=== PATIENT | female | born 1960 | race Caucasian/White ===

== ENCOUNTER 2023-12-07 09:45 | Emergency (ER) | payer SELFPAY ==
[2023-12-07 09:58] VITALS: BP 131/64; PULSE 77; RESP 16; TEMP 36; O2SAT 99; BMI 24.3
[2023-12-07] MEDS: DOXYCYCLINE HYCLATE 100 MG TABLET 200 MG PO (12:02)
--- NOTE | 2023-12-07 14:16 | ED_ITS ---
HPI - Skin/Abscess/Foreign Bdy <Stella Pacheco PA-C - Last Filed: 12/07/23 14:23> General Chief complaint: Skin/Abscess/Foreign Body Stated complaint: tick bite, infected? Time Seen by Provider: 12/07/23 11:31 Source: patient Mode of arrival: Ambulatory History of Present Illness HPI narrative: 63-year-old female presents to the ED status post a tick bite sustained recently. Patient states that she experienced some soreness and a bruised feeling on the left trunk, on closer inspection noted that she saw something stuck in her skin. Patient pulled it out thinking it might have been a little piece of wood, but it turned out to be a live take. Patient was able to bring the tick in for inspection. Patient is complaining of soreness and pain at the site of the tick bite. No other symptoms including fevers, chills, muscle aches, chest pain, shortness of breath. Patient is unclear when this tick bite actually happened. Related Data Previous Rx's Medication Instructions Recorded doxycycline hyclate 100 mg capsule 100 mg PO BID 14 days #28 caps 12/07/23 Allergies Allergy/AdvReac Type Severity Reaction Status Date / Time No Known Drug Allergies Allergy Verified 12/07/23 10:03 Review of Systems <Stella Pacheco PA-C - Last Filed: 12/07/23 14:23> Constitutional Constitutional: Denies chills, Denies fatigue, Denies fever(s), Denies frequent falls, Denies lethargy and Denies weakness Eyes Eyes: Denies change in vision, Denies eye discharge, Denies irritation and Denies loss of vision ENT Ears, Nose, Mouth, and Throat: Denies change in voice, Denies dizziness, Denies neck pain, Denies sore throat and Denies throat swelling Cardiovascular Cardiovascular: Denies chest pain, Denies irregular heart rhythm, Denies lightheadedness, Denies palpitations, Denies dyspnea, Denies dyspnea on exertion and Denies orthopnea Respiratory Respiratory: Denies cough, Denies dyspnea, Denies dyspnea on exertion and Denies wheezing Gastrointestinal Gastrointestinal: Denies abdominal pain, Denies change in bowel habits, Denies diarrhea, Denies nausea and Denies vomiting Musculoskeletal Musculoskeletal: Denies neck pain and Denies numbness Integumentary/Breasts Skin/Breast: Denies pruritus, Reports erythema, Denies rash, Reports skin pain and Denies wounds Comments: Insect bite Neurologic Neurologic: Denies behavioral changes, Denies confusion, Denies dizziness, Denies frequent falls, Denies loss of vision, Denies numbness and Denies weakness Psychiatric Psychiatric: Denies anxiety, Denies behavioral changes, Denies confusion, Denies depression, Denies homicidal ideation and Denies suicidal ideation Endocrine Endocrine: Denies fatigue, Denies flushing and Denies palpitations Hematologic/Lymphatic Hematologic/Lymphatic: Denies easy bruising Allergic/Immunologic Allergic/Immunologic: Denies urticaria, Denies throat swelling and Denies wheezing Patient History <Stella Pacheco PA-C - Last Filed: 12/07/23 14:23> Social History Smoking Status: Never smoker Smoking Status: Never smoker alcohol intake frequency: a few times a month Substance Use Type: marijuana Exam <Stella Pacheco PA-C - Last Filed: 12/07/23 14:23> Narrative Exam Narrative: Const General:?cooperative, healthy appearing and comfortable [facility] Head:?normal to inspection Ears:?hearing grossly normal bilaterally Nose:?external nose normal Face and sinus:?normal facial exam and sinuses nontender Mouth:?oral mucosae normal Throat:?posterior oropharynx normal Eyes General:?appearance normal, both eyes and all related structures Neck Neck:?normal visual inspection and no lymphadenopathy noted Resp Effort & Inspection:?normal respiratory effort Auscultation:?clear to auscultation bilaterally Cardio Rate:?regular rate Rhythm:?regular rhythm Neuro General:?patient alert, patient awake and patient oriented x3 Initial Vital Signs Initial Vital Signs: Vital Signs Temperature 96.8 F L 12/07/23 09:58 Pulse Rate 77 12/07/23 09:58 Respiratory Rate 16 12/07/23 09:58 Blood Pressure 131/64 12/07/23 09:58 Pulse Oximetry 99 12/07/23 09:58 Oxygen Delivery Method Room Air 12/07/23 09:58 <Vivienne Gardner MD - Last Filed: 12/07/23 15:48> Initial Vital Signs Initial Vital Signs: Vital Signs Temperature 96.8 F L 12/07/23 09:58 Pulse Rate 77 12/07/23 09:58 Respiratory Rate 16 12/07/23 09:58 Blood Pressure 131/64 12/07/23 09:58 Pulse Oximetry 99 12/07/23 09:58 Oxygen Delivery Method Room Air 12/07/23 09:58 Course <Stella Pacheco PA-C - Last Filed: 12/07/23 14:23> Orders Ordered: Discontinued Medications Doxycycline Hyclate (Doxycycline Hyclate 100 Mg Tablet) 200 mg PO NOW ONE Stop: 12/07/23 11:47 Last Admin: 12/07/23 12:02 Dose: 200 mg Documented By: ACOSTA Vital Signs Vital signs: Vital Signs - 8 hr 12/07/23 09:58 Temperature 96.8 F L Pulse Rate 77 Respiratory Rate 16 Blood Pressure 131/64 Pulse Oximetry 99 Oxygen Delivery Method Room Air <Vivienne Gardner MD - Last Filed: 12/07/23 15:48> Orders Ordered: Discontinued Medications Doxycycline Hyclate (Doxycycline Hyclate 100 Mg Tablet) 200 mg PO NOW ONE Stop: 12/07/23 11:47 Last Admin: 12/07/23 12:02 Dose: 200 mg Documented By: ACOSTA Vital Signs Vital signs: Vital Signs - 8 hr 12/07/23 09:58 Temperature 96.8 F L Pulse Rate 77 Respiratory Rate 16 Blood Pressure 131/64 Pulse Oximetry 99 Oxygen Delivery Method Room Air MDM - Skin/Abscess/Foreign Bdy <Stella Pacheco PA-C - Last Filed: 12/07/23 14:23> MDM Narrative Medical decision making narrative: 63-year-old female presents to the ED status post a tick bite sustained recently. The site of the tick wound does not show any remnants of the tick. There is a small puncture wound surrounded by a circular area of erythema. The tick was examined and it was live. Patient given a prophylactic dose of doxycycline in the ED. prescribed doxycycline. ED return precautions discussed with patient. Patient verbalized understanding. Medical records reviewed: Yes Discharge Plan Departure Patient Disposition: Home Clinical Impression: Tick bite Qualifiers: Encounter type: initial encounter Site of tick bite: thoracic wall Front or back of thoracic wall: front Thoracic wall location detail: left Qualified Code(s): S20.362A - Insect bite (nonvenomous) of left front wall of thorax, initial encounter Instructions: DI for Insect Bites and Stings Activity Restrictions/Additional Instructions: You were evaluated in the ED today for a tick bite. It appears that you successfully completely removed the tick. You are being given a dose of doxycycline in the emergency department as prophylaxis. You were also being given a prescription for the doxycycline to treat a possible skin infection from the tick bite. Please follow-up with your PCP as soon as possible. Return to the ED if you have worsening symptoms. Prescriptions: New doxycycline hyclate 100 mg capsule 100 mg PO BID 14 Days Qty: 28 0RF Stand Alone Forms: Patient Portal/API ED Sign-out <Vivienne Gardner MD - Last Filed: 12/07/23 15:48> Cosign ED Attending Cosignature Attestation: I was immediately available in the department for consultation throughout this patient's visit. Vivienne Gardner MD
== END 2023-12-07 12:12 | disposition home or self-care (01) ==
PROVIDERS: Emergency Provider Student in an Organized Health Care Education/Training Program
DX: S20.362A Insect bite (nonvenomous) of left front wall of thorax, initial encounter (principal); W57.XXXA Bitten or stung by nonvenomous insect and other nonvenomous arthropods, initial encounter
CPT/HCPCS: 99283